=== PATIENT | female | born 1995 | race Caucasian/White ===

== ENCOUNTER 2020-08-10 21:34 | Emergency (ER) | payer MEDICAID ==
[~2020-08-10] VITALS: Ht 157.5 cm; Wt 100.0 kg
[2020-08-10] MEDS ORDERED: ACETAMINOPHEN 325MG TABLET PO STA (22:44)
[2020-08-10 23:24] LABS: CLARITY URINE CLEAR (CLEAR); COLOR URINE YELLOW (YELLOW); KETONES URINE NEGATIVE (NEGATIVE); LEUKOCYTE ESTERASE URINE NEGATIVE (NEGATIVE); NITRITE URINE NEGATIVE (NEGATIVE); OCCULT BLOOD URINE NEGATIVE (NEGATIVE); PROTEIN URINE NEGATIVE (NEGATIVE); SPECIFIC GRAVITY URINE 1.028 (1.005-1.030)
[2020-08-11 00:15] VITALS: BP 136/77
== END 2020-08-11 00:17 | disposition home or self-care (01) ==
LOC: ER 21:34
DX: R51.9 Headache, unspecified (principal)
CPT/HCPCS: 81003; 81025; 99283

== ENCOUNTER 2022-03-10 13:11 | Emergency (ER) | payer MEDICAID ==
[~2022-03-10] VITALS: Ht 160 cm; Wt 97.0 kg
[2022-03-10 13:28] VITALS: BP 138/75
[2022-03-10 21:38] LABS: BASOPHILS % 1.3 % (0.0-2.0); EOSINOPHILS % 2.7 % (0.0-5.0); HEMATOCRIT. 36.2 % (36.0-48.0); HEMOGLOBIN. 11.7 g/dL (12.0-16.0); LYMPHOCYTES % 40.2 % (20.0-50.0); MEAN CORPUSCULAR HEMOGLOBIN 26.4 pg (28.0-32.0); MEAN CORPUSCULAR VOLUME 81.9 fL (81.0-99.0); MEAN PLATELET VOLUME 7.8 fl (7.4-10.4); MONOCYTES % 7.2 % (2.0-8.0); NEUTROPHILS % 48.6 % (40.0-76.0); PLATELET 333 x1000/uL (130-400); RED BLOOD CELL COUNT 4.42 mill/uL (4.2-5.4); RED CELL DISTRIBUTION WIDTH 14.1 % (11.6-14.6)
[2022-03-10 21:47] LABS: CHLORIDE 109 mEq/L (98-107)
[2022-03-10 21:55] LABS: HCG SCREEN NEGATIVE
== END 2022-03-10 19:07 | disposition home or self-care (01) ==
LOC: ER 13:11
DX: R55 Syncope and collapse (principal); R51.9 Headache, unspecified; N93.9 Abnormal uterine and vaginal bleeding, unspecified; F50.2 Bulimia nervosa; Z68.37 Body mass index [BMI] 37.0-37.9, adult; Z91.81 History of falling
CPT/HCPCS: 36415; 80053; 82962; 83880; 84484; 84703; 85025; 93005; 99284

== ENCOUNTER 2022-06-03 11:26 | Emergency (ER) | payer MEDICAID ==
[~2022-06-03] VITALS: Ht 167.6 cm; Wt 91.0 kg
[2022-06-03 11:39] VITALS: BP 132/77
== END 2022-06-03 17:54 | disposition left against medical advice (07) ==
LOC: ER 11:26
DX: Z53.21 Procedure and treatment not carried out due to patient leaving prior to being seen by health care provider (principal); I49.9 Cardiac arrhythmia, unspecified
CPT/HCPCS: 93005

== ENCOUNTER 2022-11-07 12:05 | Emergency (ER) | payer MEDICAID ==
[~2022-11-07] VITALS: Ht 157.5 cm; Wt 95.0 kg
[2022-11-07 12:35] LABS: BASOPHILS % 1.4 % (0.0-2.0); EOSINOPHILS % 5.2 % (0.0-5.0); HEMATOCRIT. 31.9 % (36.0-48.0); HEMOGLOBIN. 10.2 g/dL (12.0-16.0); LYMPHOCYTES % 35.2 % (20.0-50.0); MEAN CORPUSCULAR VOLUME 72.1 fL (81.0-99.0); MONOCYTES % 7.1 % (2.0-8.0); NEUTROPHILS % 51.1 % (40.0-76.0); PLATELET 482 x1000/uL (130-400); RED BLOOD CELL COUNT 4.42 mill/uL (4.2-5.4)
[2022-11-07 12:42] LABS: CHLORIDE 110 mEq/L (98-107)
[2022-11-07] MEDS ORDERED: ACETAMINOPHEN 325MG TABLET PO ONE (13:30)
[2022-11-07 15:57] LABS: HCG SCREEN NEGATIVE
[2022-11-07] MEDS ORDERED: ACETAMINOPHEN 325MG TABLET PO NR (16:30)
[2022-11-07 16:53] LABS: CLARITY URINE CLEAR (CLEAR); COLOR URINE YELLOW (YELLOW); KETONES URINE NEGATIVE (NEGATIVE); LEUKOCYTE ESTERASE URINE NEGATIVE (NEGATIVE); NITRITE URINE NEGATIVE (NEGATIVE); OCCULT BLOOD URINE NEGATIVE (NEGATIVE); PROTEIN URINE NEGATIVE (NEGATIVE); SPECIFIC GRAVITY URINE 1.026 (1.005-1.030); UROBILINOGEN URINE 0.2 E.U./dL (0.2-1.0)
[2022-11-07] MEDS ORDERED: TOPUD MT (17:19)
[2022-11-07 17:47] VITALS: BP 125/78
== END 2022-11-07 17:48 | disposition home or self-care (01) ==
LOC: ER 12:05
DX: R05.9 Cough, unspecified (principal); R51.9 Headache, unspecified; R06.2 Wheezing
CPT/HCPCS: 36415; 71045; 80053; 81003; 84703; 85025; 99284; 99285

== ENCOUNTER 2023-11-05 11:51 | Emergency (ER) | payer MEDICAID ==
[~2023-11-05] VITALS: Ht 157.5 cm; Wt 87.0 kg
[~2023-11-05 11:51] MED LIST: TOPUD MT
[2023-11-05 11:56] VITALS: BP 120/57; PULSE 74; RESP 16; O2SAT 100
[2023-11-05] MEDS: ONDANSETRON 4MG ODT PO STA (12:46)
[2023-11-05 13:02] LABS: BASOPHILS % 1.7 % (0.0-2.0); EOSINOPHILS % 2.3 % (0.0-5.0); HEMATOCRIT. 31.2 % (36.0-48.0); HEMOGLOBIN. 9.7 g/dL (12.0-16.0); LYMPHOCYTES % 28.8 % (20.0-50.0); MEAN CORPUSCULAR HEMOGLOBIN 19.5 pg (28.0-32.0); MEAN CORPUSCULAR VOLUME 62.9 fL (81.0-99.0); MEAN PLATELET VOLUME 8.2 fl (7.4-10.4); MONOCYTES % 6.5 % (2.0-8.0); NEUTROPHILS % 60.7 % (40.0-76.0); PLATELET 438 x1000/uL (130-400); RED BLOOD CELL COUNT 4.97 mill/uL (4.2-5.4); WHITE BLOOD COUNT 7.2 x1000/uL (4.5-11.0)
[2023-11-05 13:32] LABS: ADD RBC MORPHOLOGY YES; DIFFERENTIAL COMMENT 1
[2023-11-05 13:50] LABS: CHLORIDE 107 mEq/L (98-107); POTASSIUM 3.6 mEq/L (3.5-5.1); SODIUM 137 mEq/L (136-145)
[2023-11-05 13:51] LABS: CALCIUM 8.8 mg/dL (8.7-10.4); CARBON DIOXIDE 26 mEq/L (21-32)
[2023-11-05 13:56] LABS: CREATININE 0.6 mg/dL (0.6-1.0); GLUCOSE 86 mg/dL (70-105); UREA NITROGEN BLOOD 11 mg/dL (9-23)
[2023-11-05 13:58] LABS: ALANINE AMINOTRANSFERASE < 7 IU/L (10-49); ALBUMIN 4.6 g/dL (3.2-4.8); ASPARTATE AMINOTRANSFERASE 13 IU/L (<34)
[2023-11-05 13:59] LABS: BILIRUBIN TOTAL 0.4 mg/dL (0.1-1.0); PROTEIN TOTAL 7.9 g/dL (6.0-8.3)
[2023-11-05 14:08] VITALS: TEMP 98.2
[2023-11-05] MEDS: ACETAMINOPHEN 325MG TABLET PO STA (14:08)
[2023-11-05 14:40] LABS: CLARITY URINE CLEAR (CLEAR); COLOR URINE YELLOW (YELLOW); GLUCOSE URINE NEGATIVE (NEGATIVE); KETONES URINE NEGATIVE (NEGATIVE); LEUKOCYTE ESTERASE URINE NEGATIVE (NEGATIVE); NITRITE URINE NEGATIVE (NEGATIVE); OCCULT BLOOD URINE NEGATIVE (NEGATIVE); PH URINE 5.5 (4.5-8.0); PROTEIN URINE NEGATIVE (NEGATIVE); SPECIFIC GRAVITY URINE 1.027 (1.005-1.030); UROBILINOGEN URINE 0.2 E.U./dL (0.2-1.0)
[2023-11-05 16:15] LABS: ANISOCYTOSIS 1+; HYPOCHROMASIA 2+; MICROCYTOSIS 3+; PLATELET ESTIMATE INCREASED
== END 2023-11-05 14:27 | disposition left against medical advice (07) ==
LOC: ER 11:51
DX: R51.9 Headache, unspecified (principal); R10.9 Unspecified abdominal pain; K62.5 Hemorrhage of anus and rectum; R11.10 Vomiting, unspecified; J45.909 Unspecified asthma, uncomplicated; Z98.890 Other specified postprocedural states
CPT/HCPCS: 99283; 80053; 81003; 81025; 83690; 85025; 36415; Q0162

== ENCOUNTER 2024-01-05 14:31 | Emergency (ER) | payer MEDICAID ==
[~2024-01-05] VITALS: Ht 157.5 cm; Wt 190.0 kg
[2024-01-05 15:16] VITALS: O2SAT 99
[2024-01-05 15:35] LABS: BASOPHILS % 1.2 % (0.0-2.0); EOSINOPHILS % 1.5 % (0.0-5.0); HEMATOCRIT. 32.7 % (36.0-48.0); HEMOGLOBIN. 9.8 g/dL (12.0-16.0); LYMPHOCYTES % 25.7 % (20.0-50.0); MEAN CORPUSCULAR HEMOGLOBIN 19.7 pg (28.0-32.0); MEAN CORPUSCULAR HGB CONC 30.1 g/dL (31.0-37.0); MEAN CORPUSCULAR VOLUME 65.4 fL (81.0-99.0); MEAN PLATELET VOLUME 7.2 fl (7.4-10.4); MONOCYTES % 7.2 % (2.0-8.0); NEUTROPHILS % 64.4 % (40.0-76.0); PLATELET 402 x1000/uL (130-400); RED CELL DISTRIBUTION WIDTH 19.5 % (11.6-14.6); WHITE BLOOD COUNT 8.6 x1000/uL (4.5-11.0)
[2024-01-05 15:37] LABS: DIFFERENTIAL COMMENT 1
[2024-01-05 15:38] LABS: ADD RBC MORPHOLOGY YES
[2024-01-05 15:42] LABS: CHLORIDE 108 mEq/L (98-107); POTASSIUM 4.2 mEq/L (3.5-5.1); SODIUM 139 mEq/L (136-145)
[2024-01-05 15:43] LABS: CALCIUM 8.9 mg/dL (8.7-10.4); CARBON DIOXIDE 25 mEq/L (21-32)
[2024-01-05 15:48] LABS: CREATININE 0.7 mg/dL (0.6-1.0); GLUCOSE 93 mg/dL (70-105); UREA NITROGEN BLOOD 12 mg/dL (9-23)
[2024-01-05 15:55] LABS: CLARITY URINE CLEAR (CLEAR); COLOR URINE YELLOW (YELLOW); GLUCOSE URINE NEGATIVE (NEGATIVE); KETONES URINE NEGATIVE (NEGATIVE); LEUKOCYTE ESTERASE URINE 1+ (NEGATIVE); NITRITE URINE NEGATIVE (NEGATIVE); OCCULT BLOOD URINE NEGATIVE (NEGATIVE); PH URINE 7.5 (4.5-8.0); PROTEIN URINE NEGATIVE (NEGATIVE); SPECIFIC GRAVITY URINE 1.025 (1.005-1.030)
[2024-01-05 16:09] LABS: BACTERIA URINE NONE SEEN; RBC URINE 0-2 /hpf (0-2); SQUAMOUS EPITHELIAL CELL URINE 1+ /lpf (RARE/1+)
[2024-01-05 16:37] LABS: ANISOCYTOSIS 1+; HYPOCHROMASIA 2+; MICROCYTOSIS 3+; OVALOCYTES 1+; PLATELET ESTIMATE SLIGHTLY INCREASED
[2024-01-05 18:48] VITALS: BP 122/78; PULSE 67; RESP 18; TEMP 98.5
== END 2024-01-05 18:54 | disposition home or self-care (01) ==
LOC: ER 14:31
DX: K62.5 Hemorrhage of anus and rectum (principal); D64.9 Anemia, unspecified; J45.909 Unspecified asthma, uncomplicated; Z98.890 Other specified postprocedural states
CPT/HCPCS: 36415; 80048; 81003; 85025; 86850; 86900; 99283

== ENCOUNTER 2024-11-28 03:51 | Emergency (ER) | payer MEDICAID ==
[~2024-11-28] VITALS: Ht 157.5 cm; Wt 83.0 kg
[2024-11-28 03:53] VITALS: O2SAT 99
[2024-11-28 03:57] VITALS: BP 105/72; PULSE 68; RESP 20; TEMP 36.9; O2SAT 100
[2024-11-28 04:21] LABS: BASOPHILS % 0.9 % (0.0-2.0); DIFFERENTIAL COMMENT 0; EOSINOPHILS % 1.5 % (0.0-5.0); HEMATOCRIT. 34.3 % (36.0-48.0); LYMPHOCYTES % 31.1 % (20.0-50.0); MEAN CORPUSCULAR HEMOGLOBIN 24.2 pg (28.0-32.0); MEAN CORPUSCULAR VOLUME 75.6 fL (81.0-99.0); MEAN PLATELET VOLUME 7.6 fl (7.4-10.4); MONOCYTES % 8.2 % (2.0-8.0); NEUTROPHILS % 58.3 % (40.0-76.0); PLATELET 323 x1000/uL (130-400); RED BLOOD CELL COUNT 4.54 mill/uL (4.2-5.4); RED CELL DISTRIBUTION WIDTH 16.9 % (11.6-14.6); WHITE BLOOD COUNT 8.5 x1000/uL (4.5-11.0)
[2024-11-28 04:33] LABS: CHLORIDE 108 mEq/L (98-107); POTASSIUM 3.9 mEq/L (3.5-5.1); SODIUM 139 mEq/L (136-145)
[2024-11-28 04:34] LABS: CARBON DIOXIDE 24 mEq/L (21-32)
[2024-11-28 04:35] LABS: CALCIUM 8.4 mg/dL (8.7-10.4)
[2024-11-28 04:39] LABS: CREATININE 0.6 mg/dL (0.6-1.0); GLUCOSE 95 mg/dL (70-105)
[2024-11-28 04:40] LABS: UREA NITROGEN BLOOD 10 mg/dL (9-23)
[2024-11-28 05:13] VITALS: TEMP 98.5
[2024-11-28] MEDS: ACETAMINOPHEN 500MG TABLET PO ONE (05:13)
[2024-11-28] MEDS: METOCLOPRAMIDE HCL 10MG TABLET PO ONE (05:13)
== END 2024-11-28 08:38 | disposition home or self-care (01) ==
LOC: ER 03:51
DX: O26.891 Other specified pregnancy related conditions, first trimester (principal); R10.9 Unspecified abdominal pain; R10.2 Pelvic and perineal pain; Z98.890 Other specified postprocedural states; Z3A.01 Less than 8 weeks gestation of pregnancy
CPT/HCPCS: 99284; 76801; 80048; 84702; 85025; 36415; 76817; J8597

== ENCOUNTER 2025-01-01 15:46 | Emergency (ER) | payer MEDICAID ==
[~2025-01-01] VITALS: Ht 167.6 cm; Wt 82.0 kg
[2025-01-01 15:48] VITALS: O2SAT 98
[2025-01-01 16:35] LABS: DIFFERENTIAL COMMENT 0; EOSINOPHILS % 1.1 % (0.0-5.0); HEMOGLOBIN. 11.5 g/dL (12.0-16.0); LYMPHOCYTES % 22.4 % (20.0-50.0); MEAN CORPUSCULAR HEMOGLOBIN 25.7 pg (28.0-32.0); MEAN CORPUSCULAR HGB CONC 32.9 g/dL (31.0-37.0); MEAN CORPUSCULAR VOLUME 78.3 fL (81.0-99.0); MEAN PLATELET VOLUME 8.2 fl (7.4-10.4); MONOCYTES % 5.1 % (2.0-8.0); NEUTROPHILS % 70.4 % (40.0-76.0); PLATELET 318 x1000/uL (130-400); RED BLOOD CELL COUNT 4.47 mill/uL (4.2-5.4); RED CELL DISTRIBUTION WIDTH 17.6 % (11.6-14.6); WHITE BLOOD COUNT 8.2 x1000/uL (4.5-11.0)
[2025-01-01 16:46] LABS: CHLORIDE 106 mEq/L (98-107); POTASSIUM 3.8 mEq/L (3.5-5.1); SODIUM 139 mEq/L (136-145)
[2025-01-01 16:47] LABS: CALCIUM 9.1 mg/dL (8.7-10.4); CARBON DIOXIDE 23 mEq/L (21-32)
[2025-01-01 16:52] LABS: CREATININE 0.6 mg/dL (0.6-1.0); GLUCOSE 93 mg/dL (70-105); UREA NITROGEN BLOOD 8 mg/dL (9-23)
[2025-01-01 17:19] LABS: B-HCG QUANTITATIVE 41482 mIU/mL (<6)
[2025-01-01 17:35] LABS: CLARITY URINE TURBID (CLEAR); COLOR URINE ORANGE (YELLOW); GLUCOSE URINE NEGATIVE (NEGATIVE); KETONES URINE NEGATIVE (NEGATIVE); LEUKOCYTE ESTERASE URINE 1+ (NEGATIVE); NITRITE URINE NEGATIVE (NEGATIVE); OCCULT BLOOD URINE 3+ (NEGATIVE); PROTEIN URINE 2+ (NEGATIVE); SPECIFIC GRAVITY URINE 1.029 (1.005-1.030); UROBILINOGEN URINE 0.2 E.U./dL (0.2-1.0)
[2025-01-01 17:48] LABS: BACTERIA URINE TRACE; RBC URINE TNTC /hpf (0-2); SQUAMOUS EPITHELIAL CELL URINE 1+ /lpf (RARE/1+)
[2025-01-01 19:09] VITALS: BP 105/45; PULSE 80; RESP 18; TEMP 36.9; O2SAT 100
[2025-01-01 19:31] LABS: INR 0.9; PROTHROMBIN TIME 10.2 sec (9.6-11.0)
== END 2025-01-01 19:24 | disposition home or self-care (01) ==
LOC: ER 15:46
DX: O26.892 Other specified pregnancy related conditions, second trimester (principal); O99.512 Diseases of the respiratory system complicating pregnancy, second trimester; N93.9 Abnormal uterine and vaginal bleeding, unspecified; J45.909 Unspecified asthma, uncomplicated; R10.2 Pelvic and perineal pain; Z3A.22 22 weeks gestation of pregnancy
CPT/HCPCS: 36415; 76801; 80048; 81003; 84702; 85025; 86850; 86900; 99284